=== PATIENT | female | born 1990 | race Caucasian/White ===

== ENCOUNTER 2020-12-26 09:20 | Outpatient (CLI) | payer OTHER, SELFPAY ==
[2020-12-26] VITALS (12 sets, daily range): BP systolic 121–152; BP diastolic 57–105; PULSE 89–113
[2020-12-26 10:02] LABS: Basophils Percent Auto 0.2 % (0.2-1.2); Eosinophils Absolute Auto 0.2 K/mm3 (0-0.3); Eosinophils Percent Auto 1.5 % (0-4.4); Hematocrit 36.8 % (37.0-47.0); Hemoglobin 11.9 g/dL (12.0-15.0); Immature Granulocyte Absolute 0.11 K/mm3 (0.00-0.031); Immature Granulocyte Percent A 0.8 % (0-0.5); Lymphocytes Absolute Auto 1.69 K/mm3 (0.9-3.2); Mean Corpuscular HGB Conc 32.3 g/dl (32-36); Mean Corpuscular Hemoglobin 28.5 pg (26-34); Mean Platelet Volume 9.4 fl (7.4-10.4); Monocytes Absolute Auto 0.6 K/mm3 (0.1-0.6); Monocytes Percent Auto 4.4 % (2.6-8.5); Neutrophils Absolute Auto 10.4 K/mm3 (1.3-6.7); Neutrophils Percent Auto 80.1 % (45.5-73.1); Platelet Count Result 304 k/mm3 (150-375); Red Blood Count 4.18 M/mm3 (4.2-5.4)
[2020-12-26 10:15] LABS: Alanine Aminotransferase 13 U/L (4-35); Albumin Level 3.4 g/dL (3.5-5.1); Alkaline Phosphatase 145 U/L (38-126); Anion Gap 9 mmol/L (8-16); Aspartate Amino Transferase 17 U/L (14-36); Bilirubin,Total 0.2 mg/dL (0.2-1.3); Blood Urea Nitrogen 6 mg/dL (7-17); Calcium 9.3 mg/dL (8.4-10.2); Carbon Dioxide 18 mmol/L (22-30); Chloride 109 mmol/L (98-107); Estimated Glomerular Filt Rate > 60; Glucose 133 mg/dL (65-105); Potassium 3.8 mmol/L (3.4-5.0); Sodium 136 mmol/L (137-145); Uric Acid 4.2 mg/dL (2.5-7.5)
[2020-12-26 10:51] LABS: Creatinine Urine 68.3 mg/dL; Total Protein Urine Random 16 mg/dL; Ur Ttl Prot Creatinine Ratio 0.23 mg/mg (0-0.20)
--- NOTE | 2020-12-26 11:20 | PC.NURSE ---
Alexx Epstein CNM on unit. Lab results reviewed and BPs given. Will discuss with Dr. Matthews and call back with orders.
--- NOTE | 2020-12-26 11:45 | PC.NURSE ---
Alexx Epstein CNM called with further orders.
[2020-12-26] MEDS: LABETALOL HCL 100 MG TABLET 200 MG PO (12:00)
--- NOTE | 2020-12-26 14:08 | PC.NURSE ---
Called crys Epstein CNM with BPs. Watch 1hr and october D/C home if Bp WNL.
[2020-12-27 13:16] LABS: Add Urine Microscopic? YES; Appearance Urine Cloudy (Clear); Bacteria Urine Trace /hpf; Bilirubin Urine Negative (Negative); Blood Urine Negative (Negative); Color Urine Yellow (Yellow); Glucose Urine UA 2+ mg/dL (Negative); Ketones Urine Negative (Negative); Leukocyte Esterase Ur 1+ LEU/UL (NEGATIVE); Mucus Urine Rare /lpf; Nitrate Urine Negative (Negative); Protein Urine Negative (Negative); RBC Urine 0-2 /hpf (0-2); Specific Grav Ur 1.014 (1.001-1.035); Squamous Epithelial Cell Urine Many /hpf (Few); Urobilinogen Urine Negative mg/dL (<2.0); WBC Urine 0-3 /hpf (0-3)
== END 2020-12-26 15:15 | disposition home or self-care (01) ==
LOC: ANHOBOP 09:33 → ANHOBPP 09:34
PROVIDERS: Advanced Practice Midwife; Visit Provider Obstetrics & Gynecology
DX: O13.9 Gestational [pregnancy-induced] hypertension without significant proteinuria, unspecified trimester (principal); Z3A.00 Weeks of gestation of pregnancy not specified
CPT/HCPCS: 36415; 59025; 80053; 81001; 82570; 84156; 84550; 85025; 87086; 99199; A9270

== ENCOUNTER 2020-12-27 13:30 | Outpatient (CLI) | payer OTHER, SELFPAY ==
[2020-12-27 13:37] VITALS: BMI 48.6
[2020-12-27 15:01] LABS: Total Volume 24 Hour Urine 1400 ml
[2020-12-27 15:15] LABS: Total Protein Urine 24 Hr 168 mg/24hr (28-141); Total Protein Urine Random 12 mg/dL
[2020-12-27 15:17] LABS: Creatinine 24 Hour Urine 1.2 gm/24 (0.8-1.8); Creatinine Urine 91.3 mg/dL
== END 2020-12-27 13:31 | disposition home or self-care (01) ==
PROVIDERS: Visit Provider Advanced Practice Midwife
DX: O13.9 Gestational [pregnancy-induced] hypertension without significant proteinuria, unspecified trimester (principal); Z3A.00 Weeks of gestation of pregnancy not specified
CPT/HCPCS: 81050; 82570; 84156

== ENCOUNTER 2021-01-23 09:24 | Outpatient (CLI) | payer OTHER, SELFPAY ==
[2021-01-23 09:46] VITALS: BP 127/98; PULSE 109
[2021-01-23 09:50] VITALS: BP 127/98; PULSE 98
[2021-01-23 10:01] VITALS: BP 125/87; PULSE 101
[2021-01-23 10:16] VITALS: BP 130/87; PULSE 115
[2021-01-23 10:44] LABS: Basophils Percent Auto 0.3 % (0.2-1.2); Eosinophils Absolute Auto 0.3 K/mm3 (0-0.3); Eosinophils Percent Auto 2.1 % (0-4.4); Hemoglobin 12.1 g/dL (12.0-15.0); Immature Granulocyte Absolute 0.08 K/mm3 (0.00-0.031); Immature Granulocyte Percent A 0.7 % (0-0.5); Lymphocytes Absolute Auto 1.67 K/mm3 (0.9-3.2); Lymphocytes Percent Auto 14.1 % (18.3-44.2); Mean Corpuscular HGB Conc 31.8 g/dl (32-36); Mean Corpuscular Hemoglobin 28.3 pg (26-34); Mean Platelet Volume 9.6 fl (7.4-10.4); Monocytes Absolute Auto 0.5 K/mm3 (0.1-0.6); Monocytes Percent Auto 4.4 % (2.6-8.5); Neutrophils Absolute Auto 9.3 K/mm3 (1.3-6.7); Neutrophils Percent Auto 78.4 % (45.5-73.1); Platelet Count Result 298 k/mm3 (150-375); Red Blood Count 4.27 M/mm3 (4.2-5.4); Red Cell Distribution Width 14.6 % (11.5-14.5); White Blood Count 11.9 K/mm3 (4.5-10.0)
[2021-01-23 10:52] LABS: Add Urine Microscopic? YES; Appearance Urine Cloudy (Clear); Bacteria Urine Trace /hpf; Bilirubin Urine Negative (Negative); Blood Urine Negative (Negative); Color Urine Yellow (Yellow); Glucose Urine UA 1+ mg/dL (Negative); Ketones Urine Negative (Negative); Leukocyte Esterase Ur 2+ LEU/UL (NEGATIVE); Mucus Urine Rare /lpf; Nitrate Urine Negative (Negative); Protein Urine Negative (Negative); RBC Urine 0-2 /hpf (0-2); Specific Grav Ur 1.017 (1.001-1.035); Squamous Epithelial Cell Urine Many /hpf (Few); Urobilinogen Urine Negative mg/dL (<2.0)
[2021-01-23 10:55] LABS: Alanine Aminotransferase 14 U/L (4-35); Albumin Level 3.6 g/dL (3.5-5.1); Alkaline Phosphatase 181 U/L (38-126); Anion Gap 7 mmol/L (8-16); Aspartate Amino Transferase 18 U/L (14-36); Bilirubin,Total 0.3 mg/dL (0.2-1.3); Blood Urea Nitrogen 7 mg/dL (7-17); Calcium 9.3 mg/dL (8.4-10.2); Carbon Dioxide 20 mmol/L (22-30); Chloride 108 mmol/L (98-107); Estimated Glomerular Filt Rate > 60; Glucose 135 mg/dL (65-110); Sodium 135 mmol/L (137-145); Uric Acid 4.7 mg/dL (2.5-7.5)
[2021-01-23 11:05] LABS: Creatinine Urine 109.1 mg/dL; Total Protein Urine Random 9 mg/dL; Ur Ttl Prot Creatinine Ratio 0.08 mg/mg (0-0.20)
== END 2021-01-23 11:24 | disposition home or self-care (01) ==
LOC: ANHOBOP 09:30 → ANHOBPP 01-28 05:54
PROVIDERS: PCP Advanced Practice Midwife; Visit Provider Obstetrics & Gynecology
DX: O13.9 Gestational [pregnancy-induced] hypertension without significant proteinuria, unspecified trimester (principal); Z3A.00 Weeks of gestation of pregnancy not specified
CPT/HCPCS: 36415; 59025; 80053; 81001; 82570; 84156; 84550; 85025; 87086; 87088; 99199

== ENCOUNTER 2021-01-27 15:41 | Inpatient (IN) | payer OTHER, SELFPAY ==
[2021-01-27] VITALS (12 sets, daily range): BP systolic 115–160; BP diastolic 76–111; PULSE 87–102; TEMP 36.7; BMI 50.3
--- NOTE | 2021-01-27 16:01 | LDADM ---
This patient, Demetra Kaufman, was admitted to Labor/Delivery/Recovery 107 on 01/27/21 at 15:41. Plans for labor, pain management and were discussed with patient. Patient/family oriented to hospital policies and general routines including ID bracelet, bed and alarms, visiting hours, pain management, procedures, bathroom and other care routines, personal items, smoking policy, room service/diet and guest tray routines, infant security routines, and visiting hours. Patient/Family are encouraged to report perceived risks to care and to ask questions if they do not understand what they are told or what they should do. See OBIX for further documentation.
[2021-01-27 16:27] LABS: Basophils Percent Auto 0.3 % (0.2-1.2); Eosinophils Absolute Auto 0.2 K/mm3 (0-0.3); Eosinophils Percent Auto 1.2 % (0-4.4); Hematocrit 35.6 % (37.0-47.0); Hemoglobin 11.6 g/dL (12.0-15.0); Immature Granulocyte Absolute 0.08 K/mm3 (0.00-0.031); Immature Granulocyte Percent A 0.6 % (0-0.5); Lymphocytes Absolute Auto 1.21 K/mm3 (0.9-3.2); Lymphocytes Percent Auto 9.7 % (18.3-44.2); Mean Corpuscular HGB Conc 32.6 g/dl (32-36); Mean Corpuscular Hemoglobin 28.2 pg (26-34); Mean Corpuscular Volume 86.6 fl (80-100); Mean Platelet Volume 9.3 fl (7.4-10.4); Monocytes Absolute Auto 0.7 K/mm3 (0.1-0.6); Monocytes Percent Auto 5.5 % (2.6-8.5); Neutrophils Absolute Auto 10.3 K/mm3 (1.3-6.7); Neutrophils Percent Auto 82.7 % (45.5-73.1); Platelet Count Result 300 k/mm3 (150-375); Red Blood Count 4.11 M/mm3 (4.2-5.4); Red Cell Distribution Width 14.4 % (11.5-14.5); White Blood Count 12.5 K/mm3 (4.5-10.0)
[2021-01-27] MEDS: DINOPROSTONE 10 MG VAG INSERT VAGINAL (16:34)
[2021-01-27 16:41] LABS: Alanine Aminotransferase 13 U/L (4-35); Albumin Level 3.3 g/dL (3.5-5.1); Alkaline Phosphatase 169 U/L (38-126); Anion Gap 6 mmol/L (8-16); Aspartate Amino Transferase 20 U/L (14-36); Bilirubin,Total 0.3 mg/dL (0.2-1.3); Blood Urea Nitrogen 8 mg/dL (7-17); Calcium 9.4 mg/dL (8.4-10.2); Carbon Dioxide 20 mmol/L (22-30); Chloride 110 mmol/L (98-107); Estimated CRCL calculation 173 ml/min; Estimated Glomerular Filt Rate > 60; Glucose 106 mg/dL (65-110); Potassium 3.9 mmol/L (3.4-5.0); Sodium 136 mmol/L (137-145)
[2021-01-27] MEDS: LABETALOL HCL 100 MG TABLET 200 MG PO (23:06)
[2021-01-28] VITALS (97 sets, daily range): BP systolic 93–172; BP diastolic 43–126; PULSE 75–255; RESP 18–20; TEMP 36.5–37.2; O2SAT 97–100
[2021-01-28] MEDS: LACTATED RINGERS 1,000 ML 125 ML IV CONT ×3 (05:15→14:23)
[2021-01-28] MEDS: OXYTOCIN 30 UNITS/NS 500 ML 30 UNITS/500 ML BAG 6 UNITS IV CONT (05:15)
--- NOTE | 2021-01-28 07:47 | WPDANESEPPF ---
Anes - Initial Pre Proc Eval Date/Time: 01/28/21 07:47 Surgeon: Tati Matthews MD Pre Op Diagnosis: Induction of Labor/ Chronic hypertension Patient Data Age: 30 Gender: F Height: 1.57 m Weight: 125 kg Last Vital Signs Temp 36.5 C 01/28/21 05:18 Pulse 79 01/28/21 07:46 Resp 20 01/28/21 05:18 BP 144/86 H 01/28/21 07:46 Allergies Allergy/AdvReac Type Severity Reaction Status Date / Time No Known Allergies Allergy Verified 01/16/21 12:17 Home Medications Medication Instructions Recorded Confirmed Type labetalol 200 mg PO Q12HR #60 tablet 12/26/20 01/27/21 Rx albuterol 90 mcg INHALATION DAILY PRN 01/16/21 01/27/21 History prenat.vits,evi,let-fyiq-vumfp 1 tablet PO DAILY 01/16/21 01/27/21 History [ #2] Laboratory Tests 01/27/21 01/27/21 01/27/21 16:16 16:16 16:16 WBC 12.5 K/mm3 H K/mm3 (4.5-10.0) RBC 4.11 M/mm3 L M/mm3 (4.2-5.4) Hgb 11.6 g/dL L g/dL (12.0-15.0) Hct 35.6 % L % (37.0-47.0) MCV 86.6 fl fl (80-100) MCH 28.2 pg pg (26-34) MCHC 32.6 g/dl g/dl (32-36) RDW 14.4 % % (11.5-14.5) Plt Count 300 k/mm3 k/mm3 (150-375) MPV 9.3 fl fl (7.4-10.4) Immature Gran % (Auto) 0.6 % H % (0-0.5) Neut % (Auto) 82.7 % H % (45.5-73.1) Lymph % (Auto) 9.7 % L % (18.3-44.2) [place] % (Auto) 5.5 % % (2.6-8.5) Eos % (Auto) 1.2 % % (0-4.4) Baso % (Auto) 0.3 % % (0.2-1.2) Lymph # (Auto) 1.21 K/mm3 K/mm3 (0.9-3.2) [place] # (Auto) 0.7 K/mm3 H K/mm3 (0.1-0.6) Eos # (Auto) 0.2 K/mm3 K/mm3 (0-0.3) Baso # (Auto) 0.0 K/mm3 K/mm3 (0.0-0.1) Abs Immat Gran (auto) 0.08 K/mm3 H K/mm3 (0.00-0.031) Absolute Neuts (auto) 10.3 K/mm3 H K/mm3 (1.3-6.7) Absolute Nucleated RBC 0.0 K/mm3 K/mm3 (0.0-0.012) Nucleated RBC % 0.0 % % (0.0-0.2) Sodium Potassium Chloride Carbon Dioxide Anion Gap BUN Creatinine Estim Creat Clear Calc Estimated GFR Glucose Calcium Total Bilirubin AST ALT Alkaline Phosphatase Total Protein Albumin RPR Pending Blood Type A Positive Antibody Screen Negative 01/27/21 16:16 WBC RBC Hgb Hct MCV MCH MCHC RDW Plt Count MPV Immature Gran % (Auto) Neut % (Auto) Lymph % (Auto) [place] % (Auto) Eos % (Auto) Baso % (Auto) Lymph # (Auto) [place] # (Auto) Eos # (Auto) Baso # (Auto) Abs Immat Gran (auto) Absolute Neuts (auto) Absolute Nucleated RBC Nucleated RBC % Sodium 136 mmol/L L mmol/L (137-145) Potassium 3.9 mmol/L mmol/L (3.4-5.0) Chloride 110 mmol/L H mmol/L (98-107) Carbon Dioxide 20 mmol/L L mmol/L (22-30) Anion Gap 6 mmol/L L mmol/L (8-16) BUN 8 mg/dL mg/dL (7-17) Creatinine 0.50 mg/dL L mg/dL (0.7-1.0) Estim Creat Clear Calc 173 ml/min ml/min Estimated GFR > 60 (59 - ) Glucose 106 mg/dL mg/dL (65-110) Calcium 9.4 mg/dL mg/dL (8.4-10.2) Total Bilirubin 0.3 mg/dL mg/dL (0.2-1.3) AST 20 U/L U/L (14-36) ALT 13 U/L U/L (4-35) Alkaline Phosphatase 169 U/L H U/L (38-126) Total Protein 7.0 g/dL g/dL (6.3-8.2) Albumin 3.3 g/dL L g/dL (3.5-5.1) RPR Blood Type Antibody Screen Patient hx anesthesia problems: none Family hx anesthesia problems: none [facility] Family History Family History (Updated 01/16/21 @ 12:20 by Ellie Roach RN) Mother Hypertension Father Thyroid mass of unclear etiology Grandparent
--- NOTE | 2021-01-28 08:21 | WPDOBADMIT ---
Obstetrics - Admit Note Admission Note: record reviewed. No pertinent additions to the history and/or any subsequent changes in the physical findings that are not consistent with the expected course of the were found. CORNELIO CALVERT, SVE 1-2/-2, AROM small amount of clear odorless fluid Additions to the history and/or subsequent changes in the physical findings follow. None.
[2021-01-28] MEDS: SODIUM CHLORIDE 0.9% IV 300 ML 600 ML I-UTERINE (11:01)
[2021-01-28 11:20] LABS: Rapid Plasma Reagin Non-Reactive (NonReactive)
--- NOTE | 2021-01-28 21:56 | PM.OBPRVD ---
OB - Delivery Note Procedure Delivery date: 01/28/21 Procedure: vaginla delivery events: Labor Induction Induction method: AROM, per pitocin protocol and per cervidil protocol Delivery monitor: external FHT, external uterine and internal uterine Route of delivery: Laceration Description: Perineal - 2nd Degree Delivery repair: vicryl Specimen: Yes Quantitative Blood Loss (ml): 175 Anesthesia type: Epidural Disposition: floor Baby Date of : 01/28/21 Time of : 21:42 Weeks of gestation at delivery: 38 Infant gender: Female Weight (pounds): 6 Weight (ounces): 12 presentation: vertex position: Right Occiput Anterior Placenta delivery description: Spontaneous cord vessel description: 3 Vessels and Clamped/Cut score one minute: 9 score five minutes: 9 Narrative: mother and baby skin to skin in stable condition
[2021-01-28] MEDS: OXYTOCIN 30 UNITS/NS 500 ML 30 UNITS/500 ML BAG 125 UNITS IV CONT (22:13)
[2021-01-28] MEDS: ACETAMINOPHEN 325 MG TABLET 650 MG PO (23:58)
[2021-01-28] MEDS: BENZOCAINE 20% AER SPR (*SP) 56 GM CAN 1 SPRAY TOPICAL (23:58)
[2021-01-28] MEDS: WITCH HAZEL 40 PADS 1 PAD TOPICAL (23:58)
[2021-01-29] VITALS (8 sets, daily range): BP systolic 121–142; BP diastolic 79–94; PULSE 88–107; RESP 16–20; TEMP 36.1–37.1; O2SAT 97–100
--- NOTE | 2021-01-29 00:28 | PC.NURSE ---
This patient, Demetra Kaufman, was received from L&D on 01/29/21 at 0027. Patient/family oriented to unit policies and routines
[2021-01-29 05:24] LABS: Hematocrit 35.4 % (37.0-47.0); Hemoglobin 11.5 g/dL (12.0-15.0)
--- NOTE | 2021-01-29 07:30 | PC.NURSE ---
PT introductions made and plan of care discussed per post , pain management, breast feeding, daily care activities. PT received such instructions per one to one and mom baby care guide and demonstration. PT sole recipient of instructions and no barriers to learning identified. PT verbalized understanding of such care.
--- NOTE | 2021-01-29 08:19 | PM.OBPNVD ---
OB - PN: Subj Subjective Date/time seen: 01/29/21 08:19 Patient comments: no complaints baby status: doing well OB - PN: Obj Data Labs CBC & Chem 7: 01/29/21 04:41 01/27/21 16:16 Labs: Laboratory Results - last 24 hr 01/27/21 01/29/21 16:16 04:41 Hgb 11.5 L Hct 35.4 L RPR Non-reactive OB - PN A/P Plan day: 1 Plan: routine care Time Spent With Patient Time: Total time spent is greater than 50% in coordination of care (as documented) at patient's floor/unit and/or counseling patient: Time with patient: less than 15 minutes Review of Systems Review of Systems: All systems reviewed & are unremarkable except as noted in HPI and below Exam Narrative: Fundus firm and vaginal flow controlled. No lower ext redness, warmth, or edema. Negative homans. Denies h/a, v/d or e/p. Reflexes normal. Const: General: comfortable Chest: Breast/axilla inspection: normal inspection of the breasts Resp: Effort & Inspection: normal respiratory effort Cardio: Rate: regular rate GI: GI Palp: Yes Soft to palpation Psych: Appearance: grossly normal Affect: normal affect Attitude: cooperative Thought content: Yes Normal thought content present Judgement: Good judgement present (Psych)
--- NOTE | 2021-01-29 09:15 | PC.NURSE ---
Mother called out for assist with feeding. Mother reports infant has been sleepy and not latching. Mother has been given a nipple shield, and a latch assist to help with latch, neither have helped. Infant makes attempts and will not suckle or maintain latch. Infant is able to freely thrust tongue past gum ridge and flange both lips. Skin is intact on both nipples, no redness and bruising noted. Reviewed feeding cues, frequencies, duration of feedings, feeding elimination flow sheet, and signs of adequate intake. Demonstrated stimulation techniques to wake infant for feeding. Assisted with infant to breast. Reviewed positioning/alignment in football, holding breast in ?C? hold and guided asymmetrical latch on. Discussed rational for each. able to latch correctly without shield. Reviewed signs of a correct latch, effective nursing and suck swallow ratio. held the nipple in with no suckling noted. Reviewed the difference of effective vs ineffective nursing, advised infant is not effectively nursing. Suggested mother stimulate while feeding to increase stimulation, increase intake and to assist with maintaining deep latch. made not effort to suckle. released latch and was unable to latch with several minutes of attempt. Suggested mother initiate pumping to stimulate milk supply. supplemented 11 mls of formula at this time.
--- NOTE | 2021-01-29 09:51 | WPDANLDPN2 ---
Anes-Prog Note L&D Date/Time: 01/29/21 09:51 Comfortable throughout: labor and delivery Neuraxial method: epidural Epidural/Spinal procedure site: clean & non-tender Neuro status: Neuro function grossly intact. Cardiovascular status: normal Respiratory status: normal Airway patency: baseline Mental status: baseline Post-Op hydration status: normal Vital Signs: Last Vital Signs Temp 37.0 C 01/29/21 07:40 Pulse 102 H 01/29/21 07:40 Resp 18 01/29/21 07:40 BP 133/84 01/29/21 07:40 Pulse Ox 97 01/29/21 07:40 Pain score (VAS): 3 I/O: Intake & Output 01/28/21 01/29/21 01/29/21 23:59 07:59 15:59 Intake Total 500 Output Total 175 70 Balance 325 -70 Post-procedural complaints: none Patient feedback: Patient satisfied with anesthetic care.
[2021-01-29] MEDS: DOCUSATE SODIUM 100 MG CAPSULE PO ×2 (10:55→17:16)
[2021-01-29] MEDS: MULTIVIT/MIN/PREN/FOL AC/IRON TABLET 1 TAB PO (10:55)
[2021-01-29] MEDS: LABETALOL HCL 100 MG TABLET 200 MG PO ×2 (10:56→21:00)
[2021-01-29] MEDS: IBUPROFEN 600 MG TABLET PO ×2 (10:57→17:16)
--- NOTE | 2021-01-29 13:00 | PC.NURSE ---
Breast pump provided due to ineffective feeding. Instructions given on breast pump care and usage, pumping schedule, nipple care, and collection and storage of breast milk. Encouraged [id number], breast massage and manual expression to stimulate supply. Assessed patient for correct flange size, placement and draw. Patient verbalizes and demonstrates understanding of instructions.
[2021-01-30 07:25] VITALS: BP 142/95; PULSE 104; RESP 20; TEMP 36.9; O2SAT 98
--- NOTE | 2021-01-30 07:36 | PM.OBPNVD ---
OB - PN: Subj Subjective Date/time seen: 01/30/21 07:36 Patient comments: no complaints baby status: doing well OB - PN: Obj Data Labs CBC & Chem 7: 01/29/21 04:41 01/27/21 16:16 OB - PN A/P Plan day: 2 Plan: routine care and discharge home Time Spent With Patient Time: Total time spent is greater than 50% in coordination of care (as documented) at patient's floor/unit and/or counseling patient: Review of Systems Review of Systems: All systems reviewed & are unremarkable except as noted in HPI and below Exam Const: General: cooperative and other (tearful after baby was in nursery) Psych: Affect: normal affect Attitude: cooperative Thought content: Yes Normal thought content present Insight: Good insight present (Psych) Judgement: Good judgement present (Psych)
--- NOTE | 2021-01-30 07:37 | PM.OBDSVD ---
DS: Admitting Diagnosis Admitting Diagnosis ENRIKE GRIMES OB - DS: Summary OB Procedures : None OB Procedures Intrapartum: Spontaneous Vag Delivery OB Procedures: : None Time Spent with Patient Time attestation: Total time spent providing and/or coordinating discharge services: DS: Data Data Completed and Pending Pending studies at discharge: Pending at discharge 01/29/21 01:10 Surgical [PTH] Routine Discharge Plan Discharge Attending physician on discharge: Tati Matthews Discharging Clinician: Mirna Epstein Patient Disposition: Home, Self-Care Activity: pelvic rest Diet: regular Patient Instructions: Antibiotic Form Stand Alone Forms: General Discharge Information Follow-up/Referrals: Mirna Epstein, KIRAM [Primary Care Provider] - 1 Week (bp check) Discharge Medications: New ibuprofen 600 mg Tablet 600 mg PO Q6H PRN (Reason: Cramping) Qty: 30 RF: 0 Continued albuterol 90 mcg/actuation Aerosol 90 mcg INHALATION DAILY PRN (Reason: Shortness Of Breath) RF: 0 #2 Tablet 1 tablet PO DAILY RF: 0 Discontinued labetalol 100 mg Tablet 200 mg PO Q12HR Qty: 60 RF: 0 Date of admission: 01/27/21 15:41 Primary Care Provider: Mirna Epstein Admitting Provider: Tati Matthews Attending physician on admission: Tati Matthews Condition: Stable
--- NOTE | 2021-01-30 08:50 | PC.NURSE ---
Mother continues to put to breast each feeding working with for appropriate positioning/alignment. Infant remains sleepy and makes little effort to latch. has latched with little suckling noted. She denies any nipple discomfort, is feeding as required and waking to feed if needed. Infant has not had an effective feedings in the past 24 hours, all feedings are followed by supplementation. Infant is currently meeting outcomes for weight, output, jaundice and feeding frequencies. Mother is pumping after each feeding without difficulties or discomfort and has ordered a pump for home use. Mother states she feels confident to continue current feeding at home of breast/supplementation. Discussed to increase supplementation to as much as infant desires. With increased supplement infant may not want to feed for 4 hours, then should be woken to feed. Mother will continue to pump on feeding schedule increasing session to 20 minutes if every 4 hours. Reviewed as mother's milk transitions in and infant begins to nurse effectively she may want to decrease supplementation. Advised not to discontinue until pre/post feeding evaluation is done by follow up RN, ICP or LC. Reviewed transition to breast milk, signs of adequate intake, and engorgement/relief. Instructed to call ICP if intake/output less than required. Reviewed regular medications mother is taking. Information provided per [place]. Reviewed community resources on the [facility] website and in the Mom/Baby guide. Information on outpatient services provided. Mother has no further questions at this time.
[2021-01-30 09:06] VITALS: PULSE 104
[2021-01-30] MEDS: LABETALOL HCL 100 MG TABLET 200 MG PO (09:06)
[2021-01-30] MEDS: DOCUSATE SODIUM 100 MG CAPSULE PO (09:07)
[2021-01-30] MEDS: MULTIVIT/MIN/PREN/FOL AC/IRON TABLET 1 TAB PO (09:07)
--- NOTE | 2021-01-30 13:26 | PC.NURSE ---
Patient viewed the discharge video Mother & Baby Care, The First Two Weeks . Patient was given the opportunity and encouraged to ask questions. Patient verbalized understanding of information shared and has been given the mother/baby guide for home reference.
[2021-02-02 07:51] VITALS: BP 154/92; PULSE 95; RESP 20; TEMP 36.8; O2SAT 99
== END 2021-01-30 14:00 | disposition home or self-care (01) | DRG 807 ==
LOC: ANHLDR 01-28 15:16 → ANHOB2 01-29 00:31
PROVIDERS: Admitting Provider Obstetrics & Gynecology; PCP Advanced Practice Midwife; Visit Provider Obstetrics & Gynecology
DX: O10.92 Unspecified pre-existing hypertension complicating childbirth (principal); Z37.0 Single live birth; O70.1 Second degree perineal laceration during delivery; Z3A.38 38 weeks gestation of pregnancy; O76 Abnormality in fetal heart rate and rhythm complicating labor and delivery
CPT/HCPCS: 36415; 80053; 85014; 85018; 85025; 86592; 86850; 86900; 86901; 88307; A9270; J2590; J2795; J7030; J7120